=== PATIENT | male | born 1955 | race Caucasian/White ===

== ENCOUNTER 2019-01-26 20:07 | Emergency (ER) | payer BC ==
[~2019-01-26] VITALS: Ht 185.4 cm; Wt 93.9 kg
[2019-01-26 20:16] VITALS: Ht 185.4 cm; Wt 93.9 kg
[2019-01-26 22:57] VITALS: BP 138/76
== END 2019-01-26 22:57 | disposition home or self-care (01) ==
LOC: ED 20:07
DX: L23.9 Allergic contact dermatitis, unspecified cause (principal)